=== PATIENT | male | born 1990 | race Two or more races ===

== ENCOUNTER 2022-10-26 21:08 | Emergency (ER) | payer OTHER ==
[~2022-10-26] VITALS: Ht 175.3 cm; Wt 86.2 kg
[2022-10-26] MEDS ORDERED: LEXAPRO5 MG (21:25)
[2022-10-26] MEDS ORDERED: ACID CONTROLLER10 MG PO (21:26)
[2022-10-26] MEDS ORDERED: FOLIC ACID0.4 MG PO (21:26)
== END 2022-10-27 02:02 | disposition home or self-care (01) ==
LOC: ER 21:08
DX: K52.9 Noninfective gastroenteritis and colitis, unspecified (principal); Z20.822 Contact with and (suspected) exposure to COVID-19